=== PATIENT | female | born 1935 | race Caucasian/White ===

== ENCOUNTER 2023-02-09 08:39 | Inpatient (IN) ==
[2023-02-09 09:13] LABS: ABS Lymphocytes 0.5 10^3/uL (1.0-4.8); ABS Monocytes 0.5 10^3/uL (0.0-0.9); ABS Neutrophils 6.5 10^3/uL (1.5-7.6); Eosinophil % 0.3 %; Hematocrit 26.6 % (35-45); Hemoglobin 9.1 g/dL (11.5-14.3); Lymphocyte % 6.1 %; Mean Corpuscular Hemoglobin 30.7 pg (27-33); Mean Corpuscular Hgb Conc 34.1 g/dL (31-36); Mean Corpuscular Volume 90.1 fL (80-97); Mean Platelet Volume 6.7 fL (7.5-11.2); Platelet Count 415 10^3/uL (150-450); Red Blood Count 2.95 10^6/uL (3.63-4.92); Red Cell Distribution Width 16.5 % (12-17); White Blood Count 7.4 10^3/uL (3.8-11.8)
[2023-02-09 09:33] LABS: Albumin 3.5 g/dL (3.2-5.2); Albumin/Globulin Ratio 1.2 (1-3); Calcium 8.8 mg/dL (8.6-10.3); Creatinine, Serum 0.84 mg/dL (0.51-0.95); Globulin 2.9 g/dL (2-4); Potassium 4.1 mmol/L (3.5-5.0); Total Bilirubin 0.7 mg/dL (0.2-1.0); Total Protein 6.4 g/dL (6.4-8.9); eGFR CKD-EPI 66.8 (>60)
[2023-02-09] MEDS ORDERED: Iodixanol (CONTRAST) 320 MG/ML 100 ML SDV IV ONE (10:16)
[2023-02-09] MEDS ORDERED: Magnesium Hydroxide LIQ 30 ML UDC PO PRN (10:54)
[2023-02-09 11:03] LABS: INR 1.42 (0.88-1.18)
[2023-02-09] MEDS: Senna TAB 8.6 mg TAB PO SCH (11:39)
[2023-02-09] MEDS: Polyethylene Glycol 3350 17 GM PACKET PO SCH (11:39)
[2023-02-09 14:12] LABS: Ferritin 62.2 ng/mL (11-307)
[2023-02-09] MEDS: Heparin 5000 UNITS/ML 1 mL VIAL SUBCUT SCH ×2 (14:49→21:23)
[2023-02-10] MEDS ORDERED: Morphine 2 MG/ML SYRINGE IV PRN (00:14)
[2023-02-10] MEDS ORDERED: Buffered Lidocaine 1% SYRIN 1 ml INTRADERM ONE (06:00)
[2023-02-10] MEDS: Lactated Ringers 1000 ml BAG 1,000 ML IV SCH ×2 (06:00→23:52)
[2023-02-10 06:55] LABS: ABS Lymphocytes 0.4 10^3/uL (1.0-4.8); ABS Monocytes 0.7 10^3/uL (0.0-0.9); ABS Neutrophils 3.3 10^3/uL (1.5-7.6); Eosinophil % 0.1 %; Hematocrit 27.2 % (35-45); Hemoglobin 9.3 g/dL (11.5-14.3); Lymphocyte % 8.3 %; Mean Corpuscular Hemoglobin 30.2 pg (27-33); Mean Corpuscular Hgb Conc 34.1 g/dL (31-36); Mean Corpuscular Volume 88.8 fL (80-97); Platelet Count 420 10^3/uL (150-450); Red Blood Count 3.06 10^6/uL (3.63-4.92); Red Cell Distribution Width 16.7 % (12-17); White Blood Count 4.4 10^3/uL (3.8-11.8)
[2023-02-10 07:00] LABS: INR 1.64 (0.88-1.18)
[2023-02-10 07:15] LABS: Calcium 8.7 mg/dL (8.6-10.3); Creatinine, Serum 0.95 mg/dL (0.51-0.95); Magnesium 1.8 mg/dL (1.9-2.7); Potassium 4.3 mmol/L (3.5-5.0); eGFR CKD-EPI 57.6 (>60)
[2023-02-10] MEDS ORDERED: Magnesium Sulfate 2 gm BAG 2 GM/50 ML BAG IVPB ONE (08:04)
[2023-02-10] MEDS ORDERED: Iron Sucrose 20 MG/ML 5 ML VIAL IV PUSH SCH (09:00)
[2023-02-10] MEDS: Senna TAB 8.6 mg TAB PO SCH (10:09)
[2023-02-10] MEDS: Polyethylene Glycol 3350 17 GM PACKET PO SCH (10:09)
[2023-02-10] MEDS ORDERED: Lidocaine 2% PF 5 ML VIAL ONE (13:02)
[2023-02-10] MEDS ORDERED: fentaNYL 100 mcg/2 ml 50 MCG/ML VIAL ONE (13:02)
[2023-02-10] MEDS ORDERED: Propofol 10 MG/ML 20 ML BTL ONE (13:02)
[2023-02-10] MEDS ORDERED: Phenylephrine IV 10 MG/ML 1 ml VIAL ONE (13:02)
[2023-02-10] MEDS ORDERED: Etomidate 20 mg/10 ml 2 MG/ML 10 ml VIAL ONE (13:02)
[2023-02-10] MEDS: Iron Sucrose 200 MG in NS 0.9% 100 ml IVPB SCH (13:20)
[2023-02-10] MEDS ORDERED: ceFAZolin 2 GM in NS PREMIX 2 GM/100 ML BAG IVPB ONE (13:40)
[2023-02-10] MEDS ORDERED: ROPIVACAINE 5 MG/ML 30 ML BTL (0.5%) ONE (15:01)
[2023-02-10] MEDS ORDERED: Midazolam 2 mg/2 ml VIAL 1 mg/ml 2 ml VIAL (2 mg) ONE (15:11)
[2023-02-10] MEDS ORDERED: Rocuronium 50 mg VIAL 10 mg/ml 5 ml VIAL (50 mg) ONE (15:31)
[2023-02-10] MEDS ORDERED: fentaNYL 250 mcg/5 ml 50 MCG/ML 5 ml VIAL (250 MCG) ONE (15:50)
[2023-02-10] MEDS ORDERED: Ondansetron 4 mg VIAL 2 MG/ML 2 ml VIAL ONE (16:56)
[2023-02-10] MEDS ORDERED: fentaNYL 100 mcg/2 ml 50 MCG/ML VIAL IV PRN (18:07)
[2023-02-10] MEDS ORDERED: Naloxone 0.4 mg VIAL 0.4 mg/ml 1 ml VIAL IV PRN (18:07)
[2023-02-11] MEDS: Clotrimazole 1% VAGINAL CREAM 45 GM VAGINAL SCH ×2 (00:03→20:33)
[2023-02-11] MEDS: ceFAZolin 1 GM X 3 DOSES POST-OP Q8H (AddVan) IVPB SCH ×3 (00:27→17:56)
[2023-02-11 08:23] LABS: ABS Eosinophils 0.2 10^3/uL (0.0-0.5); ABS Lymphocytes 0.6 10^3/uL (1.0-4.8); ABS Monocytes 0.7 10^3/uL (0.0-0.9); ABS Neutrophils 3.4 10^3/uL (1.5-7.6); Eosinophil % 3.4 %; Lymphocyte % 12.7 %; Mean Corpuscular Hemoglobin 30.4 pg (27-33); Mean Corpuscular Hgb Conc 34.5 g/dL (31-36); Mean Corpuscular Volume 88.3 fL (80-97); Mean Platelet Volume 6.9 fL (7.5-11.2); Nucleated Red Blood Cells % 0.1 /100 WBC (0.0-0.4); Platelet Count 384 10^3/uL (150-450); Red Blood Count 3.63 10^6/uL (3.63-4.92); Red Cell Distribution Width 16.1 % (12-17); White Blood Count 4.9 10^3/uL (3.8-11.8)
[2023-02-11] MEDS: Polyethylene Glycol 3350 17 GM PACKET PO SCH (08:33)
[2023-02-11 08:39] LABS: Calcium 8.3 mg/dL (8.6-10.3); Creatinine, Serum 0.65 mg/dL (0.51-0.95); Potassium 3.9 mmol/L (3.5-5.0); Total Bilirubin 0.7 mg/dL (0.2-1.0); eGFR CKD-EPI 84.6 (>60)
[2023-02-11] MEDS: Senna TAB 8.6 mg TAB PO SCH (08:40)
[2023-02-11] MEDS: Lactated Ringers 1000 ml BAG 1,000 ML IV SCH (08:45)
[2023-02-11] MEDS: Iron Sucrose 200 MG in NS 0.9% 100 ml IVPB SCH (08:52)
[2023-02-11] MEDS ORDERED: Enoxaparin 40 MG/0.4 ML SYR SUBCUT SCH (12:00)
[2023-02-11 19:24] LABS: Urine Appearance Turbid; Urine Bilirubin Negative (Negative); Urine Blood 1+ (Negative); Urine Color Yellow; Urine Glucose Negative (Negative); Urine Ketones Negative (Negative); Urine Nitrite Positive (Negative); Urine Protein 2+(100 mg/dL) (Negative); Urine Specific Gravity 1.024 (1.002-1.030); Urine Urobilinogen Negative (Negative)
[2023-02-11 19:40] LABS: Urine Bacteria Absent (Absent); Urine Red Blood Cell Trace(0-2/hpf) (Absent); Urine White Blood Cell 3+(>20/hpf) (Absent)
[2023-02-11] MEDS: Enoxaparin 40 MG/0.4 ML SYR SUBCUT SCH (19:53)
[2023-02-12 07:59] LABS: ABS Eosinophils 0.1 10^3/uL (0.0-0.5); ABS Lymphocytes 0.7 10^3/uL (1.0-4.8); ABS Monocytes 0.8 10^3/uL (0.0-0.9); ABS Neutrophils 4.7 10^3/uL (1.5-7.6); Eosinophil % 1.6 %; Hematocrit 31.3 % (35-45); Hemoglobin 10.8 g/dL (11.5-14.3); Lymphocyte % 10.5 %; Mean Corpuscular Hemoglobin 30.5 pg (27-33); Mean Corpuscular Hgb Conc 34.4 g/dL (31-36); Mean Corpuscular Volume 88.6 fL (80-97); Nucleated Red Blood Cells % 0.1 /100 WBC (0.0-0.4); Platelet Count 365 10^3/uL (150-450); Red Blood Count 3.54 10^6/uL (3.63-4.92); Red Cell Distribution Width 16.3 % (12-17); White Blood Count 6.3 10^3/uL (3.8-11.8)
[2023-02-12 08:10] LABS: Calcium 8.2 mg/dL (8.6-10.3); Creatinine, Serum 0.56 mg/dL (0.51-0.95); Magnesium 1.9 mg/dL (1.9-2.7); Potassium 3.8 mmol/L (3.5-5.0); eGFR CKD-EPI 87.7 (>60)
[2023-02-12] MEDS: Senna TAB 8.6 mg TAB PO SCH (09:17)
[2023-02-12] MEDS: Polyethylene Glycol 3350 17 GM PACKET PO SCH (09:18)
[2023-02-12] MEDS: Iron Sucrose 200 MG in NS 0.9% 100 ml IVPB SCH (09:21)
[2023-02-12] MEDS ORDERED: cefTRIAXone 1 gm/50 mL D5W 1 GM/50 ML BAG IV SCH (12:15)
[2023-02-12] MEDS: Acetaminophen IV 1 GM/100ML 1,000 MG/100 ML BAG IV SCH ×2 (14:47→23:40)
[2023-02-12] MEDS: Clotrimazole 1% VAGINAL CREAM 45 GM VAGINAL SCH (23:35)
[2023-02-12] MEDS: Enoxaparin 40 MG/0.4 ML SYR SUBCUT SCH (23:35)
[2023-02-13] MEDS: Acetaminophen IV 1 GM/100ML 1,000 MG/100 ML BAG IV SCH (06:31)
[2023-02-13 06:56] LABS: ABS Eosinophils 0.1 10^3/uL (0.0-0.5); ABS Lymphocytes 0.8 10^3/uL (1.0-4.8); ABS Monocytes 0.8 10^3/uL (0.0-0.9); ABS Neutrophils 5.4 10^3/uL (1.5-7.6); ABS Nucleated RBC 0.02 10^3/ul; Hematocrit 30.3 % (35-45); Hemoglobin 10.4 g/dL (11.5-14.3); Lymphocyte % 11.5 %; Mean Corpuscular Hemoglobin 30.8 pg (27-33); Mean Corpuscular Hgb Conc 34.5 g/dL (31-36); Mean Corpuscular Volume 89.3 fL (80-97); Mean Platelet Volume 7.2 fL (7.5-11.2); Nucleated Red Blood Cells % 0.3 /100 WBC (0.0-0.4); Platelet Count 354 10^3/uL (150-450); Red Blood Count 3.39 10^6/uL (3.63-4.92); Red Cell Distribution Width 16.2 % (12-17); White Blood Count 7.2 10^3/uL (3.8-11.8)
[2023-02-13] MEDS: Senna TAB 8.6 mg TAB PO SCH (08:55)
[2023-02-13] MEDS: Polyethylene Glycol 3350 17 GM PACKET PO SCH ×3 (08:55→19:51)
[2023-02-13] MEDS: Iron Sucrose 200 MG in NS 0.9% 100 ml IVPB SCH (08:57)
[2023-02-13] MEDS ORDERED: Sodium Phosphate ADULT ENEMA 133 ML BTL PR ONE (11:26)
[2023-02-13] MEDS ORDERED: Lactulose 30 ml UDC PO ONE (16:15)
[2023-02-13] MEDS: Enoxaparin 40 MG/0.4 ML SYR SUBCUT SCH (19:51)
[2023-02-13] MEDS: Clotrimazole 1% VAGINAL CREAM 45 GM VAGINAL SCH (19:51)
[2023-02-14] MEDS: Senna TAB 8.6 mg TAB PO SCH (10:13)
[2023-02-14] MEDS: Polyethylene Glycol 3350 17 GM PACKET PO SCH (10:14)
[2023-02-14] MEDS: Iron Sucrose 200 MG in NS 0.9% 100 ml IVPB SCH ×2 (10:20→11:04)
[2023-02-14 13:37] LABS: Rapid COVID-19 Molecular Undetected (Undetected)
[2023-02-14] MEDS ORDERED: Polyethylene Glycol 3350 17 GM PACKET PO PRN (16:51)
[2023-02-14] MEDS ORDERED: Senna TAB 8.6 mg TAB PO PRN (16:53)
[2023-02-14] MEDS: Clotrimazole 1% VAGINAL CREAM 45 GM VAGINAL SCH (21:25)
[2023-02-14] MEDS: Enoxaparin 40 MG/0.4 ML SYR SUBCUT SCH (21:25)
[2023-02-14 23:01] VITALS: BP 159/62
== END 2023-02-15 09:45 | DRG 521 ==
LOC: ED 08:39 → EDHOLD 10:54 → SUATTDRO 10:54 → EDHOLD 11:48 → SSU 12:03
PROVIDERS: ADMIT Internal Medicine; ATTEND Internal Medicine